=== PATIENT | male | born 1985 | race Two or more races ===

== ENCOUNTER 2019-10-07 19:35 | Emergency (ER) | payer OTHER ==
[~2019-10-07] VITALS: Ht 180.3 cm; Wt 77.1 kg
[2019-10-07 19:44] VITALS: BP_SYST 136
[2019-10-07 20:00] LABS: BILIRUBIN,URINE NEGATIVE (NEGATIVE); BLOOD, URINE 3+ (NEGATIVE); COLOR,URINE RED (YELLOW); GLUCOSE,URINE NEGATIVE (NEGATIVE); KETONES,URINE NEGATIVE (NEGATIVE); LEUKOCYTE ESTERASE ,URINE NEGATIVE (NEGATIVE); NITRITE, URINE NEGATIVE (NEGATIVE); PROTEIN URINE NEGATIVE (NEGATIVE); UROBILINOGEN,URINE 0.2 (0.2-1.0)
[2019-10-07] MEDS ORDERED: NACL 0.9% 1,000 ML IV ONE (20:00)
[2019-10-07 20:08] LABS: CLARITY/URINE HAZY (CLEAR)
[2019-10-07] MEDS ORDERED: SODIUM BICARBONATE 8.4% JECT 50 MEQ/50 ML SYRINGE IVP ONE (20:15)
[2019-10-07 20:16] LABS: BACTERIA,URINE FEW /HPF (None Seen); MUCUS,URINE None Seen /LPF (None Seen); RBC,URINE >100 /HPF (0-3); WBC,URINE 0-3 /HPF (0-3)
[2019-10-07 20:20] LABS: BASOPHILS # (AUTO) 0.1 K/uL (0.0-0.2); BASOPHILS % (AUTO) 0.6 % (0.0-2.0); EOSINOPHILS # (AUTO) 0.1 K/uL (0.0-0.4); EOSINOPHILS % (AUTO) 1.2 % (0.0-4.0); HEMATOCRIT 40.9 % (36-54); HEMOGLOBIN 13.6 g/dL (14.0-18.0); LYMPHOCYTES # (AUTO) 3.6 K/uL (1.0-5.5); LYMPHOCYTES % (AUTO) 32.9 % (20.5-51.5); MEAN CORPUSCULAR HEMOGLOBIN 30 pg (27-31); MEAN CORPUSCULAR HGB CONC 33 % (32-36); MEAN CORPUSCULAR VOLUME 90 fL (79.0-98.0); MONOCYTES # (AUTO) 0.9 K/uL (0.0-1.0); MONOCYTES % (AUTO) 8.2 % (1.7-9.3); NEUTROPHILS # (AUTO) 6.2 K/uL (1.8-7.7); NEUTROPHILS % (AUTO) 57.1 % (40.0-70.0); PLATELET COUNT (AUTO) 224 K/uL (130-430); RED BLOOD CELL COUNT(AUTO) 4.54 MIL/uL (4.2-6.2); RED CELL DISTRIBUTION WIDTH 13.4 % (9.0-15.0); WHITE BLOOD COUNT (AUTO) 10.9 K/uL (4.8-10.8)
[2019-10-07 20:36] LABS: CALCIUM 8.6 mg/dL (8.4-11.0); CREATININE 1.31 mg/dL (0.55-1.30); POTASSIUM 3.6 mmol/L (3.5-5.1)
[2019-10-07 20:43] LABS: TOTAL BILIRUBIN 0.3 mg/dL (0.0-1.0)
[2019-10-07 21:10] LABS: CKMB RELATIVE INDEX 0.9 (0.0-2.9)
[2019-10-07 22:29] VITALS: BP_SYST 132
== END 2019-10-07 22:29 | disposition home or self-care (01) ==
LOC: EDBD 19:35 → SED 19:35
DX: N20.0 Calculus of kidney (principal)
CPT/HCPCS: 36415; 74176; 80053; 81000; 82550; 82553; 85025; 96365; 99284; J7030

== ENCOUNTER 2019-10-21 15:11 | Emergency (ER) | payer OTHER ==
[~2019-10-21] VITALS: Ht 180.3 cm; Wt 83.9 kg
[2019-10-21 15:11] VITALS: BP_SYST 151
[2019-10-21] MEDS ORDERED: NACL 0.9% 1,000 ML IV ONE (15:19)
[2019-10-21] MEDS ORDERED: KETOROLAC TROMETHAMINE 30 MG VIAL IVP ONE (15:30)
[2019-10-21] MEDS ORDERED: MORPHINE 4 MG/ML INJ. SYRINGE IVP ONE (15:30)
[2019-10-21] MEDS ORDERED: ONDANSETRON HCL 4 MG/2 ML VIAL IVP ONE (15:30)
[2019-10-21 15:44] LABS: EOSINOPHILS % (AUTO) 0.3 % (0.0-4.0); MEAN CORPUSCULAR VOLUME 90 fL (79.0-98.0); WHITE BLOOD COUNT (AUTO) 13.2 K/uL (4.8-10.8)
[2019-10-21 15:49] LABS: CALCIUM 8.9 mg/dL (8.4-11.0); CREATININE 1.43 mg/dL (0.55-1.30); POTASSIUM 3.8 mmol/L (3.5-5.1)
[2019-10-21 15:51] LABS: BASOPHILS % (AUTO) 0.2 % (0.0-2.0); HEMATOCRIT 40.8 % (36-54); HEMOGLOBIN 13.7 g/dL (14.0-18.0); LYMPHOCYTES # (AUTO) 1.8 K/uL (1.0-5.5); LYMPHOCYTES % (AUTO) 13.5 % (20.5-51.5); MEAN CORPUSCULAR HEMOGLOBIN 30 pg (27-31); MEAN CORPUSCULAR HGB CONC 34 % (32-36); MONOCYTES # (AUTO) 0.9 K/uL (0.0-1.0); MONOCYTES % (AUTO) 6.6 % (1.7-9.3); NEUTROPHILS # (AUTO) 10.5 K/uL (1.8-7.7); NEUTROPHILS % (AUTO) 79.4 % (40.0-70.0); PLATELET COUNT (AUTO) 268 K/uL (130-430); RED BLOOD CELL COUNT(AUTO) 4.54 MIL/uL (4.2-6.2); RED CELL DISTRIBUTION WIDTH 13.2 % (9.0-15.0)
[2019-10-21 15:54] LABS: ALBUMIN 3.9 g/dL (3.4-4.8); PROTHROMBIN TIME 9.8 SECS (9.5-12.5); TOTAL BILIRUBIN 0.6 mg/dL (0.0-1.0)
[2019-10-21] MEDS ORDERED: cefTRIAXone 1 GM IVPB PREMIX 50 ML IV ONE (17:00)
[2019-10-21] MEDS ORDERED: SODIUM PHOSPHATE,MONO-DIBASIC 133 ML ENEMA RC ONE (17:00)
[2019-10-21 17:17] LABS: BILIRUBIN,URINE NEGATIVE (NEGATIVE); BLOOD, URINE 3+ (NEGATIVE); COLOR,URINE YELLOW (YELLOW); GLUCOSE,URINE NEGATIVE (NEGATIVE); KETONES,URINE TRACE (NEGATIVE); LEUKOCYTE ESTERASE ,URINE NEGATIVE (NEGATIVE); NITRITE, URINE NEGATIVE (NEGATIVE); PROTEIN URINE 1+ (NEGATIVE); UROBILINOGEN,URINE 0.2 (0.2-1.0)
[2019-10-21 17:18] LABS: CLARITY/URINE HAZY (CLEAR)
[2019-10-21 17:25] LABS: BACTERIA,URINE MODERATE /HPF (None Seen); RBC,URINE 50-80 /HPF (0-3); WBC,URINE 0-3 /HPF (0-3)
[2019-10-21 18:10] VITALS: BP_SYST 121
== END 2019-10-21 18:10 | disposition home or self-care (01) ==
LOC: SED 15:11
DX: K59.00 Constipation, unspecified (principal); N23 Unspecified renal colic; R31.9 Hematuria, unspecified; Z87.891 Personal history of nicotine dependence
CPT/HCPCS: 36415; 74176; 80053; 81000; 82150; 83605; 83690; 85025; 85610; 85730; 87040; 87086; 96365; 96375; 99284; J0696; J1885; J2270; J2405; J7030

== ENCOUNTER 2020-03-04 18:55 | Emergency (ER) | payer OTHER ==
[~2020-03-04] VITALS: Ht 180.3 cm; Wt 81.6 kg
--- NOTE | 2020-03-04 19:00 | NUR ---
Patient to ER bed 7 to gown for evaluation. Side rails up.
[2020-03-04 19:03] VITALS: BP_SYST 137
--- NOTE | 2020-03-04 19:15 | NUR ---
DR. SILVERIO AT THE BEDSIDE EVALUATING PT
--- NOTE | 2020-03-04 19:20 | NUR ---
PT PRESENTS FROM HOME WITH CO HEAD LACERATION. REPORTS THAT HE WAS WORKING OUT WHEN HE HIT HIS HEAD ON A BAR. PT HAS A SMALL LAC TO TOP OF HEAD, NO BLEEDING NOTED, PAREMETERS CLEAN AND PINK. REPORTS SOME PAIN TO HIS HEAD. AAOX4, V/S STABLE
--- NOTE | 2020-03-04 19:30 | NUR ---
MD AT THE BEDSIDE FOR CLEANING AND FREDY TO LAC. PT TOLERATED WELL. BACITRACIN APPLIED AND OPEN TO AIR.
[2020-03-04] MEDS: BACITRACIN 1 GM OINT TP ONE (19:50)
[2020-03-04] MEDS: IBUPROFEN 800 MG TABLET PO ONE (19:51)
--- NOTE | 2020-03-04 19:51 | NUR ---
PT MEDICATED WITH IBUPROFEN PO PER MD ORDER
--- NOTE | 2020-03-04 19:56 | NUR ---
Patient given written and verbal discharge instructions and verbalizes understanding. ER MD discussed with patient the results and treatment provided. Patient in stable condition. ID arm band removed. Rx of IBUPROFEN given. Patient educated on pain management and to follow up with PMD. Pain Scale 4/10. Opportunity for questions provided and answered. Medication side effect fact sheet provided.
[2020-03-04 19:57] VITALS: BP_SYST 137
[2020-03-04] MEDS ORDERED: BACITRACIN 1 GM OINT TP ONE (20:09)
== END 2020-03-04 19:57 | disposition home or self-care (01) ==
LOC: SED 18:55
DX: S01.01XA Laceration without foreign body of scalp, initial encounter (principal); W22.8XXA Striking against or struck by other objects, initial encounter; Y93.89 Activity, other specified; Y92.008 Other place in unspecified non-institutional (private) residence as the place of occurrence of the external cause; Y99.8 Other external cause status
CPT/HCPCS: 99282; 99283

== ENCOUNTER 2020-03-11 12:34 | Emergency (ER) | payer OTHER ==
[~2020-03-11] VITALS: Ht 180.3 cm; Wt 81.6 kg
[2020-03-11 12:43] VITALS: BP_SYST 142
--- NOTE | 2020-03-11 13:00 | NUR ---
Patient to ER chair for evaluation. Side rails up. Report given to SELINA Rhodes.
--- NOTE | 2020-03-11 13:05 | NUR ---
Pt brought by self , A&Ox4, pt presents to ER for neo removal from head, pt afebrile, skin pink and warm, cap refill <3.
--- NOTE | 2020-03-11 13:20 | NUR ---
ER at bedside examining patient.
[2020-03-11 13:29] VITALS: BP_SYST 128
--- NOTE | 2020-03-11 13:29 | NUR ---
Patient given written and verbal discharge instructions and verbalizes understanding. ER MD discussed with patient the results and treatment provided. Patient in stable condition. ID arm band removed. Patient educated on pain management and to follow up with PMD. Pain Scale 0/10. Opportunity for questions provided and answered. Medication side effect fact sheet provided.
== END 2020-03-11 13:29 | disposition home or self-care (01) ==
LOC: SED 12:34
DX: S01.01XD Laceration without foreign body of scalp, subsequent encounter (principal); X58.XXXD Exposure to other specified factors, subsequent encounter
CPT/HCPCS: 99281